=== PATIENT | female | born 1950 | race Caucasian/White ===

== ENCOUNTER → 2016-07-29 | Outpatient (CLI) | payer MEDICARE, OTHER ==
[~2016-07-29] MED LIST: ADVAIR 250/501 EA INH; AMOXICILLIN500 MG PO; ECO-5325 MG PO; HYDROCODONE BIT1 T45 PO; LIPITOR10 MG PO; MELOXICAM15 MG PO; PREDNICOT20 MG PO; ROBITUSSIN AC 110 ML PO
== END | disposition home or self-care (01) ==
LOC: MAMMO 02:01
DX: Z12.31 Encounter for screening mammogram for malignant neoplasm of breast (principal)

== ENCOUNTER → 2017-01-25 | Outpatient (CLI) | payer MEDICARE, OTHER ==
[~2017-01-25] MED LIST changes: +CALCIUM 250+D1 EACH PO; +CELECOXIB200 M1 PO; +COQ10-VIT E 201 EACH PO; +MAGNESIUM400 M1 PO; +METFORMIN1000 MG PO; +ONCE DAILY1 EACH PO; +ROSUVASTATIN CA10 MG PO; +VITAMIN B COMP1 EAC1 PO; +VITAMIN D-32000 UNI1 PO
--- NOTE | ~2017-01-25 | ST ---
[place], [place] EXERCISE STRESS TEST REPORT NAME: SALAS KEITH UNIT #: [id number] ROOM: DOCTOR: DANIKA MALDONADO MD BIRTHDATE: [birth year] DOS: 01/25/2017 PHARMACOLOGICAL STRESS TEST REPORT REASON FOR STRESS TEST: Atypical chest pain. PROCEDURE IN DETAIL: The patient was given a rapid infusion of regadenoson 0.4 mg intravenously, followed by a saline flush. She noted an odd sensation in her chest, but had no other symptoms. Her resting heart rate of 69 sarah to 97. The resting blood pressure of 130/70 fell to 128/56. She had no diagnostic electrocardiographic changes aside from normal cardio-acceleration. Forty seconds after the infusion of regadenoson, she was given radionuclide intravenously. IMPRESSION: 1. Well tolerated infusion of regadenoson. 2. Radionuclide injected. Please see the separate imaging report for further details of the patient's stress test results. DANIKA MALDONADO MD CM:STRESS:EXERCISE STRESS TEST REPORT [id number] DANIKA MALDONADO MD
--- NOTE | 2017-01-25 10:00 | NUR ---
INFORMED CONSENT SIGNED FOR LEXISCAN STRESS TEST WITH DR. MALDONADO. RESTING EKG NSR, HR 69, BP 130/70. PULSE OX 98% AND LUNGS CLEAR BILATERALLY. COMPLETED ONE MINUTE OF LEXISCAN PROTOCOL RECEIVING LEXISCAN 0.4MG OVER 10 SECONDS. NO ARRHYTHMIAS OR ST CHANGES NOTED. PT C/O FEELING ODD. LAST RECOVERY HR 93, BP 132/60. WAITING NUCLEAR SCANNING IN STABLE CONDITION.
== END | disposition home or self-care (01) ==
LOC: CARD 02:18
DX: I25.9 Chronic ischemic heart disease, unspecified (principal)

== ENCOUNTER → 2018-01-05 | Outpatient (CLI) | payer MEDICARE, OTHER | END | disposition home or self-care (01) | LOC: MAMMO 12-21 04:28 | DX: Z12.31 Encounter for screening mammogram for malignant neoplasm of breast (principal) ==

== ENCOUNTER → 2020-07-30 | Outpatient (CLI) | payer MEDICARE, OTHER | END | disposition home or self-care (01) | LOC: MAMMO 10:23 | PROVIDERS: ATTEND Internal Medicine | DX: Z12.31 Encounter for screening mammogram for malignant neoplasm of breast (principal) ==

== ENCOUNTER → 2022-05-24 | Outpatient (CLI) | payer MEDICARE, OTHER | END | disposition home or self-care (01) | LOC: MAMMO 05-20 09:30 | PROVIDERS: ATTEND Internal Medicine | DX: Z12.31 Encounter for screening mammogram for malignant neoplasm of breast (principal); M81.0 Age-related osteoporosis without current pathological fracture; N64.9 Disorder of breast, unspecified ==